=== PATIENT | female | born 1935 | race Caucasian/White ===

== ENCOUNTER → 2017-03-28 | Outpatient (CLI) | payer MEDICARE ==
[2017-03-28 14:15] LABS: Basophils % (A) 1 %; CH 30.1; CHCM 32.7; Eosinophils # (A) 0.1 k/uL (0-0.7); Eosinophils % (A) 1 %; HCT 41.7 % (34.0-46.0); HDW 2.25; HGB 13.9 gm/dL (11.4-16.0); Luc # (Auto) 0.24; Luc % (Auto) 4; Lymphocytes % (A) 30 %; MCH 30.8 pg (25.0-35.0); MCHC 33.3 g/dL (31.0-37.0); MCV 92.6 fL (80.0-100.0); Mean Platelet Volume 7.3; Monocytes # (A) 0.5 k/uL (0-1.0); Monocytes % (A) 8 %; Neutrophils # (A) 3.8 k/uL (1.3-7.7); Neutrophils % (A) 57 %; RDW 13.1 % (11.5-15.5); WBC 6.6 k/uL (3.8-10.6); WBC (Perox) 5.89
[2017-03-28 14:29] LABS: ALT 28 U/L (9-52); AST 27 U/L (14-36); Alkaline Phosphatase 80 U/L (38-126); Anion Gap 11 mmol/L; Blood Urea Nitrogen 24 mg/dL (7-17); Calcium 9.2 mg/dL (8.4-10.2); Carbon Dioxide 24 mmol/L (22-30); Chloride 109 mmol/L (98-107); Cholesterol 197 mg/dL (<200); Creatine Kinase 347 U/L (30-135); Glucose 96 mg/dL (74-99); HDL Cholesterol 61 mg/dL (40-60); Non-African American GFR(MDRD) >60 (>60 ml/min/1.73 sqM); Potassium 4.2 mmol/L (3.5-5.1); Sodium 144 mmol/L (137-145); Total Bilirubin 1.3 mg/dL (0.2-1.3); Total Protein 7.3 g/dL (6.3-8.2); Triglycerides 117 mg/dL (<150)
[2017-03-28 15:01] LABS: Erythrocyte Sedimentation Rate 8 mm/hr (0-20)
[2017-03-28 15:29] LABS: C Reactive Protein <5.0 mg/L (<10.0)
== END | disposition home or self-care (01) ==
LOC: LABWHC1 13:44
PROVIDERS: ATTEND Internal Medicine
DX: E78.5 Hyperlipidemia, unspecified (principal); F03.90 Unspecified dementia, unspecified severity, without behavioral disturbance, psychotic disturbance, mood disturbance, and anxiety
CPT/HCPCS: 36415; 80053; 80061; 82550; 84443; 85025; 85652; 86140

== ENCOUNTER 2018-01-06 19:01 | Emergency (ER) | payer OTHER, MEDICARE ==
[2018-01-06] MEDS ORDERED: SODIUM CHLORIDE 0.9% 1,000 ML IV STA (20:10)
[2018-01-06 20:39] LABS: HGB 13.2 gm/dL (11.4-16.0); MCH 29.8 pg (25.0-35.0); MCHC 32.1 g/dL (31.0-37.0); MCV 92.7 fL (80.0-100.0); Mean Platelet Volume 6.8; Platelet Count 243 k/uL (150-450); RBC 4.43 m/uL (3.80-5.40); RDW 12.9 % (11.5-15.5); WBC 6.4 k/uL (3.8-10.6)
[2018-01-06 20:40] LABS: INR 1.1 (<1.2); Prothrombin Time 10.6 sec (9.0-12.0)
[2018-01-06 20:55] LABS: Eosinophils # (M) 0.06 k/uL (0-0.7); Lymphocytes # (M) 2.43 k/uL (1.0-4.8); Monocytes # (M) 0.38 k/uL (0-1.0); Neutrophils # (M) 3.52 k/uL (1.3-7.7); Neutrophils % (M) 55 %; Nucleated Red Blood Cells 0 /100 WBC (0-0); Total Cells Counted 100
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
[2018-01-06 20:57] LABS: Anion Gap 10 mmol/L; Blood Urea Nitrogen 18 mg/dL (7-17); Carbon Dioxide 25 mmol/L (22-30); Chloride 108 mmol/L (98-107); Glucose 93 mg/dL (74-99); Potassium 4.2 mmol/L (3.5-5.1); Sodium 143 mmol/L (137-145)
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
[2018-01-06 20:58] LABS: ALT 23 U/L (9-52); AST 19 U/L (14-36); Albumin 3.8 g/dL (3.5-5.0); Alkaline Phosphatase 95 U/L (38-126); Calcium 9.4 mg/dL (8.4-10.2); Total Bilirubin 0.2 mg/dL (0.2-1.3); Total Protein 6.5 g/dL (6.3-8.2)
--- NOTE | 2018-01-06 20:59 | XR ---
EXAMINATION TYPE: XR chest 2V DATE OF EXAM: 01/06/2018 COMPARISON: NONE HISTORY: Dizziness TECHNIQUE: Frontal and lateral views of the chest are obtained. FINDINGS: There is some linear density at the left lung base. There are calcified granulomata in the left lower lobe. Thoracic aorta is atheromatous. There is no heart failure. I see no definite pleura l effusion. IMPRESSION: Fibrotic changes and old granulomatous disease at the left lung base. Subsegmental atele ctasis may be present also. No heart failure.
[2018-01-06 21:52] LABS: Appearance,Urine Clear (Clear); Bilirubin,Urine Negative (Negative); Blood,Urine Negative (Negative); Color,Urine Yellow; Glucose,Urine (UA) Negative (Negative); Hyaline Casts,Urine 3 /lpf (0-2); Ketones,Urine Negative (Negative); Leukocyte Esterase,Urine Large (Negative); Mucus,Urine Moderate /hpf; Nitrite,Urine Negative (Negative); PH, Urine 5.5 (5.0-8.0); Protein,Urine Trace (Negative); RBC,Urine 4 /hpf (0-5); Specific Gravity,Urine 1.018 (1.001-1.035); Squamous Epithelial Cell,Urine 1 /hpf (0-4); Urobilinogen,Urine <2.0 mg/dL (<2.0); WBC,Urine 38 /hpf (0-5)
[2018-01-06 22:26] VITALS: BP 163/86; PULSE 76; RESP 16; TEMP 98
== END 2018-01-06 22:27 | disposition home or self-care (01) ==
LOC: EC 19:01
DX: R42 Dizziness and giddiness (principal); Z79.899 Other long term (current) drug therapy; Z87.891 Personal history of nicotine dependence; V49.50XA Passenger injured in collision with unspecified motor vehicles in traffic accident, initial encounter; W22.12XA Striking against or struck by front passenger side automobile airbag, initial encounter; Y92.410 Unspecified street and highway as the place of occurrence of the external cause
CPT/HCPCS: 36415; 70450; 71046; 72125; 80053; 81001; 84484; 85025; 85610; 93005; 96360; 96361; 99285

== ENCOUNTER → 2019-03-11 | Outpatient (CLI) | payer MEDICARE ==
[2019-03-11 11:06] LABS: Basophils % (A) 1 %; Eosinophils # (A) 0.1 k/uL (0-0.7); Eosinophils % (A) 1 %; HCT 42.7 % (34.0-46.0); HGB 13.8 gm/dL (11.4-16.0); Lymphocytes # (A) 1.9 k/uL (1.0-4.8); Lymphocytes % (A) 35 %; MCH 30.5 pg (25.0-35.0); MCHC 32.3 g/dL (31.0-37.0); MCV 94.5 fL (80.0-100.0); Mean Platelet Volume 7.4; Monocytes # (A) 0.3 k/uL (0-1.0); Monocytes % (A) 5 %; Neutrophils # (A) 3.1 k/uL (1.3-7.7); Neutrophils % (A) 55 %; Platelet Count 232 k/uL (150-450); RBC 4.52 m/uL (3.80-5.40); RDW 13.5 % (11.5-15.5); WBC 5.5 k/uL (3.8-10.6)
[2019-03-11 12:56] LABS: Erythrocyte Sedimentation Rate 13 mm/hr (0-20)
[2019-03-11 19:05] LABS: ALT 17 U/L (8-44); AST 23 U/L (13-35); Albumin/Globulin Ratio 2.05 (1.60-3.17); Alkaline Phosphatase 98 U/L (41-126); C Reactive Protein <0.4 mg/dL (0.0-0.8); Calcium 9.4 mg/dL (8.7-10.3); Carbon Dioxide 23.9 mmol/L (21.6-31.8); Chloride 108 mmol/L (96-109); Cholesterol 148 mg/dL (0-200); Globulin 2.1 g/dL (1.6-3.3); Glucose 108 mg/dL (70-110); LDL Cholesterol,Calculated 80.6 mg/dL (0.0-131.0); Magnesium 2.2 mg/dL (1.5-2.4); Phosphorus 3.5 mg/dL (2.4-5.1); Potassium 4.4 mmol/L (3.5-5.5); Sodium 142 mmol/L (135-145); Total Bilirubin 0.7 mg/dL (0.3-1.2); Total Protein 6.4 g/dL (6.2-8.2); Uric Acid 4.2 mg/dL (2.9-7.7)
== END | disposition home or self-care (01) ==
LOC: LABWHC1 09:48
PROVIDERS: ATTEND Internal Medicine
DX: E78.5 Hyperlipidemia, unspecified (principal); E03.9 Hypothyroidism, unspecified; E55.9 Vitamin D deficiency, unspecified
CPT/HCPCS: 36415; 80053; 80061; 82306; 83735; 84100; 84443; 84550; 85025; 85652; 86140

== ENCOUNTER → 2019-05-20 | Outpatient (CLI) | payer MEDICARE ==
--- NOTE | 2019-05-21 09:14 | MM ---
Reason for exam: screening (asymptomatic). Last mammogram was performed 4 years and 7 months ago. History: Patient is postmenopausal. Family history of breast cancer in maternal aunt. Benign excisional biopsy of the left breast. Physical Findings: A clinical breast exam by your physician is recommended on an annual basis and results should be correlated with mammographic findings. MG 3D Screening Mammo W/Cad Bilateral CC and MLO view(s) were taken. Prior study comparison: October 08, 2014, bilateral MG screening mammo w CAD. January 29, 2012, [facility] DIGITAL RIGHT MAMMOGRAM w/CAD. The breast tissue is heterogeneously dense. This may lower the sensitivity of mammography. No suspicious abnormality. No significant changes when compared with prior studies. ASSESSMENT: Negative, BI-RAD 1 RECOMMENDATION: Routine screening mammogram of both breasts in 1 year.
== END | disposition home or self-care (01) ==
LOC: RADMAMWWP 09:24
PROVIDERS: ATTEND Internal Medicine
DX: Z12.31 Encounter for screening mammogram for malignant neoplasm of breast (principal)
CPT/HCPCS: 77063; 77067

== ENCOUNTER → 2019-07-31 | Outpatient (CLI) | payer MEDICARE ==
[2019-07-31 18:44] LABS: African American GFR (CKD) 77.9 (60.0-200.0)
[2019-07-31 18:52] LABS: T4, Free (Free Thyroxine) 1.2 ng/dL (0.80-1.80)
[2019-07-31 19:26] LABS: Folate, Serum >24.0 ng/mL; Rheumatoid Factor <4 IU/mL (0-13)
[2019-07-31 19:30] LABS: Anti-DNA, DS unit <1.0 IU/mL; DNA Double-Stranded NEGATIVE (NEGATIVE)
[2019-08-03 12:33] LABS: ANA Pattern See Footnote
[2019-08-04 09:17] LABS: Lyme IgG/IgM 0.06 Index
== END | disposition home or self-care (01) ==
LOC: LABWHC1 11:19
PROVIDERS: ATTEND Psychiatry & Neurology Neurology
DX: R41.3 Other amnesia (principal)
CPT/HCPCS: 36415; 82565; 82607; 82746; 84439; 84443; 84481; 84520; 86038; 86039; 86225; 86431; 86618

== ENCOUNTER → 2019-09-19 | Outpatient (CLI) | payer MEDICARE ==
--- NOTE | 2019-09-19 17:21 | MR ---
EXAMINATION TYPE: MR brain wo/w con DATE OF EXAM: 09/19/2019 COMPARISON: 03/30/2014 HISTORY: Memory loss, dementia, MS TECHNIQUE: Multiplanar, multisequence images of the brain and brainstem is performed without and with IV contras t, utilizing 7 mL intravenous Gadavist . FINDINGS: There is some cerebral cortical atrophy. There is no mass effect nor midline shift. There i s no sign of intracranial hemorrhage. Diffusion images show no evidence of a cortical infarct. There is patchy coalescent increased signal in the periventricular white matter on the T2 and FLAIR images. These areas measure up to 1 cm. There is also increased signal in the anterior left thalamus measuri ng 8 mm. There is bilateral insula white matter increased signal. The brainstem is intact. There is v mishel minimal thinning of the corpus callosum. Sella turcica appears normal. There is no evidence of a posterior fossa mass. IMPRESSION: Diffuse white matter changes consistent with chronic small vessel ischemia or demyelinating disease. Mild cerebral atrophy. No evidence of cortical infarct. White matter disease shows minimal progressio n compared to old exam.
== END | disposition home or self-care (01) ==
LOC: RADMRIMAIN 14:31
PROVIDERS: ATTEND Psychiatry & Neurology Neurology
DX: C71.9 Malignant neoplasm of brain, unspecified (principal); G35 Multiple sclerosis
CPT/HCPCS: 70553; A9585

== ENCOUNTER → 2020-11-23 | Outpatient (CLI) | payer MEDICARE ==
[2020-11-23 14:15] LABS: Basophils # (A) 0.1 k/uL (0-0.2); Basophils % (A) 1 %; Eosinophils # (A) 0.1 k/uL (0-0.7); Eosinophils % (A) 1 %; HCT 44.6 % (34.0-46.0); HGB 14.5 gm/dL (11.4-16.0); Lymphocytes # (A) 1.7 k/uL (1.0-4.8); Lymphocytes % (A) 28 %; MCH 30.9 pg (25.0-35.0); MCHC 32.4 g/dL (31.0-37.0); MCV 95.3 fL (80.0-100.0); Mean Platelet Volume 7.7; Monocytes # (A) 0.5 k/uL (0-1.0); Monocytes % (A) 7 %; Neutrophils # (A) 3.7 k/uL (1.3-7.7); Neutrophils % (A) 60 %; Platelet Count 215 k/uL (150-450); RBC 4.69 m/uL (3.80-5.40); RDW 12.8 % (11.5-15.5); WBC 6.2 k/uL (3.8-10.6)
[2020-11-23 15:02] LABS: Erythrocyte Sedimentation Rate 10 mm/hr (0-20)
[2020-11-23 21:14] LABS: ALT 21 U/L (8-44); AST 25 U/L (13-35); African American GFR (CKD) 58.7 (60.0-200.0); Albumin/Globulin Ratio 2.09 (1.60-3.17); Alkaline Phosphatase 83 U/L (41-126); C Reactive Protein <0.4 mg/dL (0.0-0.8); Calcium 9.5 mg/dL (8.7-10.3); Carbon Dioxide 25.7 mmol/L (21.6-31.8); Chloride 104 mmol/L (96-109); Chol/HDL Ratio 2.62; Cholesterol 170 mg/dL (0-200); Creatine Kinase 68 U/L (26-186); Globulin 2.2 g/dL (1.6-3.3); Glucose 106 mg/dL (70-110); LDL Cholesterol,Calculated 87.6 mg/dL (0.0-131.0); Magnesium 2.2 mg/dL (1.5-2.4); Non-African American GFR(CKD) 50.6 (60.0-200.0); Potassium 4.4 mmol/L (3.5-5.5); Sodium 142 mmol/L (135-145); Total Bilirubin 0.6 mg/dL (0.3-1.2); Total Protein 6.8 g/dL (6.2-8.2)
== END | disposition home or self-care (01) ==
LOC: LABWHC1 13:35
PROVIDERS: ATTEND Internal Medicine
DX: Z00.00 Encounter for general adult medical examination without abnormal findings (principal); D64.9 Anemia, unspecified; I10 Essential (primary) hypertension; E87.8 Other disorders of electrolyte and fluid balance, not elsewhere classified; E78.5 Hyperlipidemia, unspecified; E03.9 Hypothyroidism, unspecified; E55.9 Vitamin D deficiency, unspecified; G30.9 Alzheimer's disease, unspecified; F02.80 Dementia in other diseases classified elsewhere, unspecified severity, without behavioral disturbance, psychotic disturbance, mood disturbance, and anxiety
CPT/HCPCS: 36415; 80053; 80061; 82306; 82550; 83735; 84443; 85025; 85652; 86140

== ENCOUNTER → 2022-04-28 | Outpatient (CLI) | payer MEDICARE ==
[2022-04-28 17:29] LABS: Basophils # (A) 0.04 X 10*3/uL (0.00-0.10); Basophils % (A) 0.7 %; Eosinophils # (A) 0.05 X 10*3/uL (0.04-0.35); Eosinophils % (A) 0.9 %; HCT 47.5 % (37.2-46.3); HGB 14.6 g/dL (12.0-15.0); Immature Grans, Automated 0.3 %; Lymphocytes # (A) 2.03 X 10*3/uL (0.90-5.00); Lymphocytes % (A) 34.5 %; MCH 29.6 pg (27.0-32.0); MCHC 30.7 g/dL (32.0-37.0); MCV 96.2 fL (80.0-97.0); Mean Platelet Volume 10.5 fL (9.5-12.2); Monocytes # (A) 0.43 X 10*3/uL (0.20-1.00); Monocytes % (A) 7.3 %; NRBC Per 100 WBC 0 /100 WBCS (0.0-0.0); Neutrophils # (A) 3.31 X 10*3/uL (1.80-7.70); Neutrophils % (A) 56.3 %; Platelet Count 247 X 10*3/uL (140-440); RBC 4.94 X 10*6/uL (4.10-5.20); RDW 13.7 % (11.5-14.5); WBC 5.88 X 10*3/uL (4.50-10.00)
[2022-04-28 17:31] LABS: Erythrocyte Sedimentation Rate 5 mm/Hr (0-30)
[2022-04-28 18:23] LABS: C Reactive Protein <0.30 mg/dL (0.00-0.80); Chol/HDL Ratio 3.02 Ratio
[2022-04-28 18:27] LABS: ALT 15 U/L (8-44); AST 20 U/L (13-35); African American GFR (CKD) 66.8 (60.0-200.0); Albumin 4.6 g/dL (3.8-4.9); Albumin/Globulin Ratio 1.84 (1.60-3.17); Alkaline Phosphatase 85 U/L (41-126); BUN/Creat Ratio 23.96 Ratio (12.00-20.00); Blood Urea Nitrogen 21.4 mg/dL (9.0-27.0); Calcium 9.7 mg/dL (8.7-10.3); Chloride 102 mmol/L (96-109); Creatine Kinase 74 U/L (26-186); Globulin 2.5 g/dL (1.6-3.3); Glucose 109 mg/dL (70-110); Magnesium 2.4 mg/dL (1.5-2.4); Non-African American GFR(CKD) 57.6 (60.0-200.0); Potassium 4.5 mmol/L (3.5-5.5); Sodium 139 mmol/L (135-145); Total Protein 7.2 g/dL (6.2-8.2); Uric Acid 4.6 mg/dL (2.9-7.7)
== END | disposition home or self-care (01) ==
LOC: LABWHC1 10:51
PROVIDERS: ATTEND Internal Medicine
DX: Z00.00 Encounter for general adult medical examination without abnormal findings (principal); E78.5 Hyperlipidemia, unspecified; E03.9 Hypothyroidism, unspecified; E55.9 Vitamin D deficiency, unspecified; D64.9 Anemia, unspecified; I10 Essential (primary) hypertension; G30.9 Alzheimer's disease, unspecified; F02.80 Dementia in other diseases classified elsewhere, unspecified severity, without behavioral disturbance, psychotic disturbance, mood disturbance, and anxiety
CPT/HCPCS: 36415; 80053; 80061; 82306; 82550; 83735; 84100; 84443; 84550; 85025; 85652; 86140

== ENCOUNTER 2022-07-12 17:05 | Inpatient (IN) | payer MEDICARE ==
--- NOTE | 2022-07-12 18:32 | XR ---
EXAMINATION TYPE: XR chest 2V DATE OF EXAM: 07/12/2022 COMPARISON: 01/06/2018. HISTORY: Pain status post fall. TECHNIQUE: Frontal and lateral views of the chest are obtained. FINDINGS: There is no acute air space opacity, pleural effusion, or pneumothorax seen. Stable scatte red multiple left greater than right subcentimeter calcified granulomas. The cardiac silhouette size is within normal limits. The osseous structures are intact. IMPRESSION: No acute cardiopulmonary process. Calcified granulomas.
--- NOTE | 2022-07-12 18:34 | XR ---
EXAMINATION TYPE: XR Hip LT and AP Pelvis DATE OF EXAM: 07/12/2022 COMPARISON: NONE HISTORY: Pain status post fall. TECHNIQUE: A single AP view of the pelvis is obtained. Two views of the left hip are obtained. FINDINGS: There is suspicious fractures of the left superior and inferior pubic rami. There is also s uspicious fracture of the left iliac bone. No evidence of dislocation. The hip joint spaces are gross ly preserved. IMPRESSION: Suspicious left pubic rami and iliac bone fractures.
--- NOTE | 2022-07-12 21:24 | ED ---
Fall HPI - General Chief Complaint: Fall Stated Complaint: poss left hip fracture, fall Time Seen by Provider: 07/12/22 21:05 Source: patient, family, RN notes reviewed Mode of arrival: wheelchair - History of Present Illness Initial Comments: This is an 86-year-old female who presents to the emergency department for a fall. She does have dementia, which has been making it difficult to obtain a complete history from her. Believes that she was chasing her dog, when she fell down 2 or 3 steps. She hit her head and landed on the left side. Currently has pain to the left side of her chest in the rib area as well as in the left hip. States that she has been unable to stand due to the pain. She is normally very independent and lives alone. She is not taking any blood thinners. The family does not believe a computed tomography scan of the brain is necessary at this time, as they were on a [address] back from [facility] and she has been acting just like her normal self. Denies any loss of consciousness. Denies any fevers, chills, sore throat, cough, dyspnea, chest pain, palpitations, abdominal pain, nausea, vomiting, diarrhea, back pain, or headaches. MD Complaint: fall Fall From: standing Fall Witnessed: no Place Fall Occurred: home Loss of Consciousness: none Symptoms Prior to Fall: none Location: head - Related Data Previous Rx's Medication Instructions Recorded Meclizine [Antivert] 12.5 mg PO Q8HR #12 tablet 01/06/18 Allergies Allergy/AdvReac Type Severity Reaction Status Date / Time No Known Allergies Allergy Verified 07/12/22 17:43 Review of Systems ROS Statement: Those systems with pertinent positive or pertinent negative responses have been documented in the HPI. ROS Other: All systems not noted in ROS Statement are negative. Past Medical History Past Medical History: No Reported History, Dementia History of Any Multi-Drug Resistant Organisms: None Reported Past Surgical History: Adenoidectomy, Tonsillectomy Past Psychological History: No Psychological Hx Reported Past Alcohol Use History: Occasional Past Drug Use History: None Reported General Exam General appearance: alert, in no apparent distress Head exam: Present: atraumatic, normocephalic, normal inspection Respiratory exam: Present: normal lung sounds bilaterally. Absent: respiratory distress, wheezes, rales, rhonchi, stridor Cardiovascular Exam: Present: regular rate, normal rhythm, normal heart sounds. Absent: systolic murmur, diastolic murmur, rubs, gallop, clicks Neurological exam: Present: alert, oriented X3, CN II-XII intact Psychiatric exam: Present: normal affect, normal mood Skin exam: Present: warm, dry, intact, normal color. Absent: rash Course Vital Signs 07/12/22 07/12/22 17:38 23:56 Temperature 97.7 F Pulse Rate 56 L 65 Respiratory 18 16 Rate Blood Pressure 149/86 117/62 O2 Sat by Pulse 99 95 Oximetry Medical Decision Making - Medical Decision Making This is an 86-year-old female who presents to the emergency department for a fall. The patient and family are declining a computed tomography scan of the brain, as she has had a normal mental status. I am agreeable to this for the meantime, with the plan to obtain a CT if she does exhibit any changes in mentation. X-rays of the left hip and chest were obtained. Chest x-ray revealed no acute cardiopulmonary process. X-ray of the left hip revealed a questionable left pubic rami and iliac bone fracture. CT of the pelvis was then obtained for further evaluation. This confirmed the left pubic rami and iliac bone fractures. Dr. Sandhu, orthopedics, was consulted. She advised that this is not surgical, however due to the pain and impact on mobility, the patient may benefit from short-term rehabilitation placement. Patient admitted for evaluation by physical therapy and possible rehab placement. Social work consult placed regarding the rehab placement options. Return precautions reviewed in depth, the patient is instructed to return to the emergency department with any new, worsening, or concerning symptoms. Patient verbalized understanding. This case was discussed in detail with the attending ED physician. Presentation, findings, and treatment plan discussed in detail as well. - Radiology Data Radiology results: report reviewed, image reviewed Disposition Clinical Impression: Fracture of left inferior pubic ramus, Fracture of left iliac crest Disposition: ADMITTED IP TO THIS HOSP
--- NOTE | 2022-07-12 22:06 | CT ---
Result: History: Follow-up pain status post fall. Comparison: Same-day radiographs Technique: Noncontrast axial CT images of the pelvis were obtained with images provided in bone and s oft tissue algorithm. Coronal and sagittal reformats were provided and reviewed. Automated dose con trol was used for this exam. Findings: The bone mineralization is age-appropriate. There are nondisplaced fractures of the left superior pubic ramus root and inferior pubic ramus. Ther e is also mildly comminuted fracture of the left iliac bone articular surface extending into the sacr oiliac joint. No evidence of dislocation. There is soft tissue edema about the fracture sites. Impression: Left pubic rami and left iliac bone fractures.
[2022-07-12] MEDS ORDERED: HYDROcodone/APAP 5-325MG 1 EACH TAB PO STA (23:18)
[2022-07-12] MEDS ORDERED: IBUPROFEN 400 MG TAB PO PRN (23:58)
[2022-07-12] MEDS ORDERED: NALOXONE 0.4 MG/ML 1 ML VIAL IV PRN (23:58)
[2022-07-12] MEDS ORDERED: ONDANSETRON 4 MG/2 ML VIAL IVP PRN (23:58)
[2022-07-12] MEDS ORDERED: ACETAMINOPHEN TAB 325 MG TAB PO PRN (23:58)
[2022-07-13] MEDS: HYDROcodone/APAP 5-325MG 1 EACH TAB PO PRN (06:33)
[2022-07-13] MEDS: MULTIVITAMINS, THERA 1 EACH TAB PO SCH (10:11)
[2022-07-13] MEDS: DONEPEZIL 10 MG TAB PO SCH (10:11)
[2022-07-13] MEDS: CHOLECALCIFEROL 25 MCG (1000 IU) TABLET PO SCH (10:11)
[2022-07-13] MEDS: MEMANTINE 10 MG TAB PO SCH (10:11)
--- NOTE | 2022-07-13 10:23 | XR ---
EXAMINATION TYPE: XR ribs LT DATE OF EXAM: 07/13/2022 COMPARISON: NONE HISTORY: Pain TECHNIQUE: 4 views of the left ribs are submitted. FINDINGS: Bilateral calcifications are noted and there is pleural thickening greater on the right. Novak bsegmental changes at both lung bases. Degenerative changes spine with atherosclerotic change of aort a. Age-indeterminate compression deformity approximately at level L1. There are displaced fractures i nvolving the left sixth through eighth ribs. Calcifications in the upper abdomen could be vascular. H eart is enlarged IMPRESSION: 1. Displaced fractures involving the left sixth through eighth ribs laterally. 2. Bilateral infiltrates with right-sided asymmetric pleural thickening. Correlate for pleural plaque or calcified granuloma. Short-term follow-up CT of the chest recommended. 3. No pneumothorax. 4. Age-indeterminate compression deformity L1.
--- NOTE | 2022-07-13 10:59 | P.CNOR ---
History of Present Illness - [facility] Consult date: 07/13/22 Consult reason: fracture (Left pubic rami and iliac fractures) History of present illness: The patient is a 86 y/o female with a history of dementia who presented to the emergency department last night after sustaining a fall in her assisted living apartment. The patient's son was present in the room this morning and provided her history. X-rays were taken in the ER and revealed a pubic rami fracture. A pelvis CT was performed and revealed a iliac fracture as well. She did hit her head but the patient's family declined a head CT upon arrival to the ER. This morning, the patient is resting well in the ER. She is awaiting admission for skilled rehab placement. Orthopedics was consulted for further evaluation and care of the pubic rami and iliac fractures. She is having pain on the left side as expected. The patient was also found to have rib fractures and possibly an old L1 compression fracture as well. Review of Systems ROS unobtainable: due to mental status Past Medical History Past Medical History: No Reported History, Dementia History of Any Multi-Drug Resistant Organisms: None Reported Past Surgical History: Adenoidectomy, Tonsillectomy Past Psychological History: No Psychological Hx Reported Past Alcohol Use History: Occasional Past Drug Use History: None Reported Medications and Allergies Home Medications Medication Instructions Recorded Confirmed Type Atorvastatin [Lipitor] 10 mg PO HS 07/13/22 07/13/22 History Cholecalciferol [Vitamin D3 (25 25 mcg PO DAILY 07/13/22 07/13/22 History Mcg = 1000 Iu)] Donepezil HCl [Aricept] 10 mg PO DAILY 07/13/22 07/13/22 History Melatonin [Melatonin ER] 10 mg PO HS 07/13/22 07/13/22 History Memantine [Namenda] 10 mg PO BID 07/13/22 07/13/22 History Multivitamins, Thera [Multivitamin 1 tab PO DAILY 07/13/22 07/13/22 History (formulary)] Allergies Allergy/AdvReac Type Severity Reaction Status Date / Time No Known Allergies Allergy Verified 07/13/22 08:14 Physical Examination The patient is a 86 y/o female in no acute distress. She is alert and oriented x2. Exam of the cervical spine reveals no step-offs or pain on palpation. Exam of the bilateral upper extremities reveal no obvious deformity or wounds. Exam of the right lower extremity reveals no deformity or open wounds. Exam of the left lower extremity reveal pain on any range of motion of the leg. No pain to the lateral hip. No deformity to the leg. There is pain on lateral compression of the pelvis. Calves are soft and nontender. Good foot and ankle motion. Neurological and circulatory status is intact. Results The CT pelvis and x-rays reveal superior and inferior pubic rami fractures on the left and iliac fracture on the left. Assessment and Plan (1) Fracture of left superior pubic ramus Current Visit: Yes Status: Acute Code(s): S32.512A - FRACTURE OF SUPERIOR RIM OF LEFT PUBIS, INIT FOR CLOS FX SNOMED Code(s): 720491032 (2) Fall Current Visit: Yes Status: Acute Code(s): W19.XXXA - UNSPECIFIED FALL, INITIAL ENCOUNTER SNOMED Code(s): 5795269 (3) Dementia Current Visit: Yes Status: Acute Code(s): F03.90 - UNSPECIFIED DEMENTIA WITHOUT BEHAVIORAL DISTURBANCE SNOMED Code(s): 39523055 (4) Fracture of left iliac crest Current Visit: Yes Status: Acute Code(s): S32.302A - UNSP FRACTURE OF LEFT ILIUM, INIT ENCNTR FOR CLOSED FRACTURE SNOMED Code(s): 229368310 (5) Fracture of left inferior pubic ramus Current Visit: Yes Status: Acute Code(s): S32.592A - OTH FRACTURE OF LEFT PU BIS, INIT ENCNTR FOR CLOSED FRACTURE SNOMED Code(s): 401756595 Plan: The clinical and diagnostic findings were discussed with the patient and her son. No surgical intervention is planned. The patient will need skilled rehab placement. PT and OT evaluations have been ordered. Social work is consulted. She will be nonweightbearing on the left leg with a walker for transfers to a chair. Continue pain control. We will continue to monitor.
[2022-07-13] MEDS: oxyCODONE-APAP 5-325MG 1 EACH TAB PO PRN ×2 (11:34→17:01)
--- NOTE | 2022-07-13 17:48 | P.PN ---
Subjective Progress Note Date: 07/13/22 Progress note date of service 07/13/[address] Abril Martin [facility]. Patient seen [id number] today and room exam 24 and they are was delayed for the admission to the floor and she will be going to fourth floor surgical souse power. Her daughter in the same room with a watching in the ER exam room Patient with a history of dementia has been stable until recently when she fell down on the role of the dog at the [facility] and landed on her left side Patient seen in the ER and orthopedic consultation was done and they decided no added treatment except pain control and shelter for continuing rehab Patient seen by the PA/malcolm supplantation Jerilyn Bethea who is working with Dr. Madelyn Sandhu Orthopedic associate who stated and her note that she had the fell down and she had pubic rami and iliac fracture of the left hip as well as she had L1 compression fracture which apparently old as well as the rib fractures and the rib fractures from 65 and 8 with severe pain and the x-ray report of the ribs the x-ray indicating that displaced fracture involving the left 6 through the eighth ribs laterally Bilateral infiltrate with a right sided symmetrical rebecca thickening correlate with the rebecca plaque or calcified granuloma. They recommended short-term follow-up computed tomography scan of the chest is recommended also the indicated no pneumothorax and intermediate compression deformity of L1. The orthopedic is aware of diet. Zzqk-cq-soai exam as well as evaluation of the vital sign Temperature 98.1 F oral heart rate 69, respiratory rate 18 nonlabored, blood pressure 131/70 with a mean blood pressure 90 her oxygen saturation 93% on room air. On the physical examination patient is conscious alert oriented she has no respiratory distress but she had splinting pain on the left side of the ribs Head was normocephalic and atraumatic pupil was equal reactive conjunctiva was pink sclera is nonicteric She has normal oropharynx with natural teeth Neck was supple no JVD no thyromegaly no lymphadenopathy trachea midline. Her chest is tender on palpation on the left side of the ribs with the presence of fracture 6 to 8 cramps She did not have no pleurisy and able to Blease normally on the auscultation no rhonchi or rales Heart was regular sinus rhythm Abdomen was soft positive bowel sounds and mildly distended Extremities no edema and she had a fracture of the left pelvis of the the rami as well as the. Neurologically she is stable and she was able to walk before Psychiatry she has underlying dementia. Assessment #1 she had left hip fracture of the pubic rami on the left side as well as the iliac #2 fracture of the ribs on the left side some displacement #6, 7, 8, with tenderness on palpation # #3 dementia stable at this time Recommendation physical therapy [facility] worker long term placement for rehabilitation with the above fractures. Objective - Vital Signs Vital signs: Vital Signs Temp 98.1 F 07/13/22 13:12 Pulse 69 07/13/22 13:12 Resp 18 07/13/22 13:12 BP 131/70 07/13/22 13:12 Pulse Ox 93 L 07/13/22 13:12 FiO2 Intake & Output 07/12/22 07/13/22 07/13/22 18:59 06:59 18:59 Weight 56.699 kg
[2022-07-13] MEDS: DOCUSATE 100 MG CAP PO SCH (18:47)
[2022-07-14] MEDS: MEMANTINE 10 MG TAB PO SCH ×3 (00:15→20:33)
[2022-07-14] MEDS: ATORVASTATIN 10 MG TAB PO SCH ×2 (00:15→20:33)
[2022-07-14] MEDS: MELATONIN 5 MG TABLET PO SCH ×2 (00:15→20:33)
[2022-07-14] MEDS: HYDROcodone/APAP 5-325MG 1 EACH TAB PO PRN ×2 (06:29→20:33)
[2022-07-14] MEDS: DOCUSATE 100 MG CAP PO SCH (08:08)
[2022-07-14] MEDS: MULTIVITAMINS, THERA 1 EACH TAB PO SCH (08:08)
[2022-07-14] MEDS: DONEPEZIL 10 MG TAB PO SCH (08:08)
[2022-07-14] MEDS: CHOLECALCIFEROL 25 MCG (1000 IU) TABLET PO SCH (08:08)
--- NOTE | 2022-07-14 10:43 | P.PN ---
Subjective Progress Note Date: 07/14/22 The patient is a 86 y/o female with a history of dementia who presented to the emergency department last night after sustaining a fall in her assisted living apartment. The patient's son was present in the room this morning and provided her history. X-rays were taken in the ER and revealed a pubic rami fracture. A pelvis CT was performed and revealed a iliac fracture as well. She did hit her head but the patient's family declined a head CT upon arrival to the ER. This morning, the patient is resting well in the ER. She is awaiting admission for skilled rehab placement. Orthopedics was consulted for further evaluation and care of the pubic rami and iliac fractures. She is having pain on the left side as expected. The patient was also found to have rib fractures and possibly an old L1 compression fracture as well. 07/14/22: Patient is examined bedside this morning. Family member bedside. She states her pain is well-controlled at this time. Her family members states she was up in the night with a walker to the bedside commode. She is remaining nonweightbearing on the left lower extremity. There are no new complaints this morning. Vital signs stable. Objective - Vital Signs Vital signs: Vital Signs Temp 98.5 F 07/14/22 08:00 Pulse 71 07/14/22 08:00 Resp 16 07/14/22 02:22 BP 127/79 07/14/22 08:00 Pulse Ox 94 L 07/14/22 08:00 FiO2 Intake & Output 07/13/22 07/14/22 07/14/22 18:59 06:59 18:59 Weight 56.699 kg Other: Voiding Method Bedside Commode Bedpan # Voids 1 1 - Exam On examination, patient is sitting up in bed in no apparent distress. She is alert and answers questions appropriately. There is pain with palpation of the lateral pelvis. No pain with palpation of the lateral hip, thigh, knee, ankle. Range of motion of the left lower extremity not attempt at this time. Patient has good strength and [id number] of the left ankle and toes. Motor and sensory function is intact of the left lower extremity. Dorsalis pedis pulse easily palpable, left lower extremity warm and well-perfused. Calf is nontender. Assessment and Plan (1) Dementia Current Visit: Yes Status: Acute Code(s): F03.90 - UNSPECIFIED DEMENTIA WITHOUT BEHAVIORAL DISTURBANCE SNOMED Code(s): 15156645 (2) Fall Current Visit: Yes Status: Acute Code(s): W19.XXXA - UNSPECIFIED FALL, INITIAL ENCOUNTER SNOMED Code(s): 5004250 (3) Fracture of left iliac crest Current Visit: Yes Status: Acute Code(s): S32.302A - UNSP FRACTURE OF LEFT ILIUM, INIT ENCNTR FOR CLOSED FRACTURE SNOMED Code(s): 092430987 (4) Fracture of left inferior pubic ramus Current Visit: Yes Status: Acute Code(s): S32.592A - OTH FRACTURE OF LEFT PUBIS, INIT ENCNTR FOR CLOSED FRACTURE SNOMED Code(s): 073466473 (5) Fracture of left superior pubic ramus Current Visit: Yes Status: Acute Code(s): S32.512A - FRACTURE OF SUPERIOR RIM OF LEFT PUBIS, INIT FOR CLOS FX SNOMED Code(s): 857519848 Plan: - Patient was discussed with Dr. Sandhu. No surgical intervention is recommended at this time. Patient to remain strictly nonweightbearing on the left lower extremity with a walker. Up with assistance. Fall precautions. - Physical therapy for mobilization. - Pain management as needed. - Patient will most likely need rehab placement at discharge. We will follow the patient peripherally as she remains inpatient.
--- NOTE | 2022-07-14 12:34 | P.PN ---
Subjective Progress Note Date: 07/14/22 Progress note Date of service 07/14/[address] janet Martin [facility] Patient seen today [id number] discussed with her daughter at bedside. Patient is conscious alert oriented however she has progressive dementia and she understand that she fractured her pelvis and ribs on the left side Her pain level is tolerated well with the current treatment. Vital sign her stable stable and no complaint of chest pain or shortness of breath. On exam: Head was normocephalic and atraumatic, pupils equal reactive, has natural teeth able to communicate freely. Neck was supple no JVD no thyromegaly no lymphadenopathy trachea midline. Chest is clear no wheezes no rhonchi's and she has and symmetrical with the kyphoscoliosis Heart was regular sinus rhythm no dysrhythmia. Abdomen soft nontender positive bowel sounds with the mild abdominal distention questionable stool retention Extremities no edema and positive pulses she in Namrata chair comfortable Assessment: #1 status post fall at the [facility] with the correct on the leash of the dog #2 fall on her left side resulted in rib fracture #6, 7 and 8 on the left side #3 fracture of left pelvis left pubic rami and iliac:. #4 dementia. Plan continue the current treatment Waiting for placement at [facility]. 4 prolongated rehabilitation. Discussed with the daughter in detail. Objective - Vital Signs Vital signs: Vital Signs Temp 98.5 F 07/14/22 08:00 Pulse 71 07/14/22 08:00 Resp 16 07/14/22 02:22 BP 127/79 07/14/22 08:00 Pulse Ox 94 L 07/14/22 08:00 FiO2 Intake & Output 07/13/22 07/14/22 07/14/22 18:59 06:59 18:59 Weight 56.699 kg Other: Voiding Method Bedside Commode Bedpan # Voids 1 1
[2022-07-14] MEDS: SENNOSIDES-DOCUSATE SODIUM 1 EACH TAB PO SCH ×2 (12:39→20:33)
[2022-07-14] MEDS: oxyCODONE-APAP 5-325MG 1 EACH TAB PO PRN (12:40)
[2022-07-15] MEDS: oxyCODONE-APAP 5-325MG 1 EACH TAB PO PRN ×2 (03:28→13:32)
[2022-07-15] MEDS: DONEPEZIL 10 MG TAB PO SCH (08:07)
[2022-07-15] MEDS: CHOLECALCIFEROL 25 MCG (1000 IU) TABLET PO SCH (08:07)
[2022-07-15] MEDS: MULTIVITAMINS, THERA 1 EACH TAB PO SCH (08:07)
[2022-07-15] MEDS: MEMANTINE 10 MG TAB PO SCH ×2 (08:07→22:07)
[2022-07-15] MEDS: DOCUSATE 100 MG CAP PO SCH (08:08)
[2022-07-15] MEDS: SENNOSIDES-DOCUSATE SODIUM 1 EACH TAB PO SCH ×2 (08:08→22:07)
[2022-07-15] MEDS ORDERED: MAGNESIUM HYDROXIDE 2,400 MG/10 ML CUP PO PRN (13:12)
[2022-07-15] MEDS ORDERED: ENALAPRILAT 1.25 MG/ML 1 ML VIAL IVP PRN (13:23)
[2022-07-15] MEDS: amLODIPine 5 MG TAB PO SCH (13:32)
--- NOTE | 2022-07-15 13:36 | P.PN ---
Subjective Progress Note Date: 07/15/22 (Hypertension uncontrolled) Progress note Date of service 07/15/[address] Abril Martin [facility] Patient seen today [id number] and discussed with her son and caregiver. Patient sitting in the chair with no specific complaint except to the pain from her rib fracture on the left lower ribs 6, 7, 8 and she breathing normally and no evidence of pleurisy comfortable Vital sign indicating temperature 98.0 F oral heart rate 66 bpm regular sinus, blood pressure 164/91 with the mean blood pressure 115 air, oxygen saturation 100%. Patient conscious alert oriented able to converse and answer some questions with the underlying dementia Her head was normocephalic and atraumatic pupil was equal reactive conjunctiva was pink sclera was nonicteric Neck was supple no JVD no thyromegaly no lymphadenopathy Chest is clear to auscultation and percussion Heart was regular sinus rhythm with the underlying hypertension presents. Abdomen soft mildly distended with possibility of constipation able to urinate. Extremities no edema and positive pulses with good perfusion . Tenderness on the left lower ribs as well as on the left side of the hips with the fracture of the pubic ramus as well as iliac new Assessment #1 concern of constipation medication applied #2 hypertension and started on Vasotec IV 1.25 mg every 6 hours when necessary for blood pressure above 140 systolic #3 started on amlodipine 5 mg at at bedtime to be held if the blood pressure below 140 systolic. #4 waiting for continuing rehabilitation at [facility]. Plan: Discussed with her son and caregiver and plan for Saturday [facility] intermediate Start heparin subcu 5000 every 12 hours Physical therapy to continue. Follow-up with the orthopedic surgeon. Objective - Vital Signs Vital signs: Vital Signs Temp 98.0 F 07/15/22 08:00 Pulse 66 07/15/22 08:00 Resp 17 07/15/22 02:00 BP 164/91 07/15/22 08:00 Pulse Ox 100 07/15/22 08:00 FiO2 Intake & Output 07/14/22 07/15/22 07/15/22 18:59 06:59 18:59 Other: Voiding Method Bedside Commode Bedpan # Voids 1 1 1
[2022-07-15] MEDS: HYDROcodone/APAP 5-325MG 1 EACH TAB PO PRN (20:38)
[2022-07-15] MEDS ORDERED: HEPARIN SODIUM,PORCINE 5,000 UNIT/ML 1 ML VIAL SQ SCH (21:00)
[2022-07-15] MEDS: ATORVASTATIN 10 MG TAB PO SCH (22:07)
[2022-07-15] MEDS: MELATONIN 5 MG TABLET PO SCH (22:07)
[2022-07-15] MEDS: HEPARIN SODIUM,PORCINE/PF 5,000 UNIT/0.5 ML SYRINGE SQ SCH (22:07)
[2022-07-16 05:12] LABS: INR 0.9 (<1.2); Partial Thromboplastin Time 22.7 sec (22.0-30.0); Prothrombin Time 10.3 sec (9.0-12.0)
[2022-07-16] MEDS: HYDROcodone/APAP 5-325MG 1 EACH TAB PO PRN ×3 (08:28→21:45)
[2022-07-16] MEDS: MEMANTINE 10 MG TAB PO SCH ×2 (08:29→21:46)
[2022-07-16] MEDS: MULTIVITAMINS, THERA 1 EACH TAB PO SCH (08:29)
[2022-07-16] MEDS: DONEPEZIL 10 MG TAB PO SCH (08:29)
[2022-07-16] MEDS: HEPARIN SODIUM,PORCINE/PF 5,000 UNIT/0.5 ML SYRINGE SQ SCH ×2 (08:29→21:46)
[2022-07-16] MEDS: CHOLECALCIFEROL 25 MCG (1000 IU) TABLET PO SCH (08:29)
[2022-07-16] MEDS: SENNOSIDES-DOCUSATE SODIUM 1 EACH TAB PO SCH ×2 (08:29→21:46)
[2022-07-16 09:16] LABS: Basophils # (A) 0.02 X 10*3/uL (0.00-0.10); Basophils % (A) 0.2 %; Eosinophils # (A) 0.02 X 10*3/uL (0.04-0.35); Eosinophils % (A) 0.2 %; HCT 39.2 % (37.2-46.3); HGB 12.7 g/dL (12.0-15.0); Immature Grans, Automated 0.5 %; Lymphocytes # (A) 1.23 X 10*3/uL (0.90-5.00); Lymphocytes % (A) 14.6 %; MCH 30.2 pg (27.0-32.0); MCHC 32.4 g/dL (32.0-37.0); MCV 93.1 fL (80.0-97.0); Monocytes % (A) 10.7 %; NRBC Per 100 WBC 0 /100 WBCS (0.0-0.0); Neutrophils # (A) 6.19 X 10*3/uL (1.80-7.70); Neutrophils % (A) 73.8 %; Platelet Count 171 X 10*3/uL (140-440); RBC 4.21 X 10*6/uL (4.10-5.20); RDW 14.3 % (11.5-14.5)
[2022-07-16 10:01] LABS: Albumin 3.7 g/dL (3.8-4.9); Albumin/Globulin Ratio 1.53 (1.60-3.17); Anion Gap 11.1 mmol/L (10.00-18.00); BUN/Creat Ratio 28.51 Ratio (12.00-20.00); Blood Urea Nitrogen 19.1 mg/dL (9.0-27.0); Calcium 8.7 mg/dL (8.7-10.3); Carbon Dioxide 24.1 mmol/L (20.0-27.5); Globulin 2.4 g/dL (1.6-3.3); Non-African American GFR(CKD) 78.5 (60.0-200.0); Total Bilirubin 0.7 mg/dL (0.30-1.20); Total Protein 6.1 g/dL (6.2-8.2)
[2022-07-16] MEDS: oxyCODONE-APAP 5-325MG 1 EACH TAB PO PRN (12:09)
--- NOTE | 2022-07-16 14:20 | P.PN ---
Subjective Progress Note Date: 07/16/22 The patient is a 86 y/o female with a history of dementia who presented to the emergency department last night after sustaining a fall in her assisted living apartment. The patient's son was present in the room this morning and provided her history. X-rays were taken in the ER and revealed a pubic rami fracture. A pelvis CT was performed and revealed a iliac fracture as well. She did hit her head but the patient's family declined a head CT upon arrival to the ER. This morning, the patient is resting well in the ER. She is awaiting admission for skilled rehab placement. Orthopedics was consulted for further evaluation and care of the pubic rami and iliac fractures. She is having pain on the left side as expected. The patient was also found to have rib fractures and possibly an old L1 compression fracture as well. 07/16/22: Patient is examined bedside this morning. Her daughters bedside. The patient states she is doing well and experiencing minimal pain today. She has been transferring with a walker to the bedside chair. She is doing well with no complaints. She is planning to discharge tomorrow tomorrow. Vital signs stable. Objective - Vital Signs Vital signs: Vital Signs Temp 97.6 F 07/16/22 07:13 Pulse 96 07/16/22 07:13 Resp 14 07/16/22 07:13 BP 117/80 07/16/22 07:13 Pulse Ox 91 L 07/16/22 07:13 FiO2 Intake & Output 07/15/22 07/16/22 07/16/22 18:59 06:59 18:59 Other: Voiding Method Bedside Commode Bedpan # Voids 1 1 - Exam On examination, patient is sitting up in the bedside chair in no apparent distress. She is alert and answers questions appropriately. There is mild pain with palpation of the lateral pelvis. No pain with palpation of the lateral hip, thigh, knee, ankle. Range of motion of the left lower extremity not attempt at this time. Patient has good strength and [id number]-[id number] of the left ankle and toes. Motor and sensory function is intact of the left lower extremity. Dorsalis pedis pulse easily palpable, left lower extremity warm and well- perfused. Calf is nontender. - Labs CBC & Chem 7: 07/16/22 04:15 07/16/22 04:15 Labs: Abnormal Lab Results - Last 24 Hours (Table) 07/16/22 07/16/22 Range/Units 04:15 04:15 Eosinophils # 0.02 L (0.04-0.35) X 10*3/uL BUN/Creatinine Ratio 28.51 H (12.00-20.00) Ratio Glucose 139 H (70-110) mg/dL AST 50 H (13-35) U/L ALT 55 H (8-44) U/L Total Protein 6.1 L (6.2-8.2) g/dL Albumin 3.7 L (3.8-4.9) g/dL Albumin/Globulin Ratio 1.53 L (1.60-3.17) g/dL Assessment and Plan (1) Dementia Current Visit: Yes Status: Acute Code(s): F03.90 - UNSPECIFIED DEMENTIA WITHOUT BEHAVIORAL DISTURBANCE SNOMED Code(s): 10890353 (2) Fall Current Visit: Yes Status: Acute Code(s): W19.XXXA - UNSPECIFIED FALL, INITIAL ENCOUNTER SNOMED Code(s): 9020596 (3) Fracture of left iliac crest Current Visit: Yes Status: Acute Code(s): S32.302A - UNSP FRACTURE OF LEFT ILIUM, INIT ENCNTR FOR CLOSED FRACTURE SNOMED Code(s): 800188643 (4) Fracture of left inferior pubic ramus Current Visit: Yes Status: Acute Code(s): S32.592A - OTH FRACTURE OF LEFT PUBIS, INIT ENCNTR FOR CLOSED FRACTURE SNOMED Code(s): 692495829 (5) Fracture of left superior pubic ramus Current Visit: Yes Status: Acute Code(s): S32.512A - FRACTURE OF SUPERIOR RIM OF LEFT PUBIS, INIT FOR CLOS FX SNOMED Code(s): 759581177 Plan: - Patient was discussed with Dr. Sandhu today. Patient may advance her weight bearing to 50% on the left lower extremity with a walker. Up with assistance. Fall precautions. - Physical therapy for mobilization. - Pain management as needed. - DVT prophylaxis per internal medicine . - Patient plans to discharge to [facility] tomorrow.
--- NOTE | 2022-07-16 15:07 | P.PN ---
Subjective Progress Note Date: 07/16/22 (Mild liver enzyme elevation.) Progress note Date of service 07/16/[address] Samuels. Patient seen today and discussed with the patient and her daughter at bedside. Temperature 97.6 F oral, heart rate 96 bpm, respiratory rate 17 - 14 nonlabored, blood pressure 117/80 oxygen saturation on room air 91 no shortness of breath. Laboratories: WBC 8.4, hemoglobin 12.7, hematocrit 39.2, platelet count 171, PT 10.3, INR 0.9, PTT 22.7, Sodium 140, potassium 4, chloride 105, carbon dioxide 24.1 BUN of 19.1, creatinine 0.7, EGFR for non- 78.5. Glucose random 139 calcium 8.7, AST 50 and a LT 55 with minimal elevation with normal alkaline phosphatase 81. Total protein 6.1, albumin 3.7, globulin 2.4. Patient seen by the orthopedic nurse practitioner today. Patient in the Namrata chair comfortable and pain is controlled. Patient suffered from left hip pubic fracture as well as rib fracture on the 6, 7 and 8 and pain is tolerable controlled very well Head was normocephalic and atraumatic oropharynx natural disease able to eat and swallow her daughter at bedside. The neck was supple no JVD no thyromegaly no lymphadenopathy trachea midline Chest was clear to auscultation and percussion was underlying kyphoscoliosis Heart was regular sinus rhythm compensated no evidence of dysrhythmia Abdomen is soft positive bowel sounds Extremities no edema and positive pulses. Assessment left rib fracture 6, 7 and 8 as well as left iliac as well as the pubic rami fracture Mild elevation of liver enzyme no need for treatment, we'll repeat again after 3-4 weeks. Dementia continued Plan: #1 waiting for the available alf for continuing rehabilitation. #2 continue rehab. Objective - Vital Signs Vital signs: Vital Signs Temp 97.9 F 07/16/22 14:00 Pulse 83 07/16/22 14:00 Resp 16 07/16/22 14:00 BP 111/71 07/16/22 14:00 Pulse Ox 93 L 07/16/22 14:00 FiO2 Intake & Output 07/15/22 07/16/22 07/16/22 18:59 06:59 18:59 Other: Voiding Method Bedside Commode Bedpan # Voids 1 1 - Labs CBC & Chem 7: 07/16/22 04:15 07/16/22 04:15 Labs: Abnormal Lab Results - Last 24 Hours (Table) 07/16/22 07/16/22 Range/Units 04:15 04:15 Eosinophils # 0.02 L (0.04-0.35) X 10*3/uL BUN/Creatinine Ratio 28.51 H (12.00-20.00) Ratio Glucose 139 H (70-110) mg/dL AST 50 H (13-35) U/L ALT 55 H (8-44) U/L Total Protein 6.1 L (6.2-8.2) g/dL Albumin 3.7 L (3.8-4.9) g/dL Albumin/Globulin Ratio 1.53 L (1.60-3.17) g/dL
[2022-07-16] MEDS: ATORVASTATIN 10 MG TAB PO SCH (21:46)
[2022-07-16] MEDS: amLODIPine 5 MG TAB PO SCH (21:46)
[2022-07-16] MEDS: MELATONIN 5 MG TABLET PO SCH (21:46)
[2022-07-17] MEDS: oxyCODONE-APAP 5-325MG 1 EACH TAB PO PRN (01:02)
[2022-07-17] MEDS: HYDROcodone/APAP 5-325MG 1 EACH TAB PO PRN ×2 (06:27→11:54)
[2022-07-17] MEDS: SENNOSIDES-DOCUSATE SODIUM 1 EACH TAB PO SCH ×2 (07:23→20:47)
[2022-07-17] MEDS: MULTIVITAMINS, THERA 1 EACH TAB PO SCH (07:23)
[2022-07-17] MEDS: HEPARIN SODIUM,PORCINE/PF 5,000 UNIT/0.5 ML SYRINGE SQ SCH (07:23)
[2022-07-17] MEDS: DONEPEZIL 10 MG TAB PO SCH (07:23)
[2022-07-17] MEDS: CHOLECALCIFEROL 25 MCG (1000 IU) TABLET PO SCH (07:23)
[2022-07-17] MEDS: MEMANTINE 10 MG TAB PO SCH ×2 (07:23→20:47)
[2022-07-17 08:52] LABS: Glucose,Whole Blood 154 mg/dL (70-110)
[2022-07-17] MEDS ORDERED: DILTIAZEM DRIP BOLUS FROM BAG 1 MG SOLN IV ONE (10:00)
[2022-07-17] MEDS ORDERED: DEXTROSE 5% IN WATER 100 ML with AMIODARONE 150 MG IV ONE (10:20)
[2022-07-17] MEDS ORDERED: DILTIAZEM 125 MG in SODIUM CHLORIDE 0.9% 100 ML IV SCH (10:30)
[2022-07-17] MEDS ORDERED: AMIODARONE 360 MG in DEXTROSE 5% IN WATER 200 ML IV ONE ×2 (10:30)
[2022-07-17] MEDS: NOREPINEPHRINE 4 MG in SODIUM CHLORIDE 0.9% 250 ML IV SCH (11:33)
[2022-07-17] MEDS: AMIODARONE 200 MG TAB PO SCH ×2 (11:55→20:47)
[2022-07-17] MEDS ORDERED: AMIODARONE 450 MG in DEXTROSE 5% IN WATER 250 ML IV SCH ×2 (16:30)
[2022-07-17] MEDS: MELATONIN 5 MG TABLET PO SCH (20:47)
[2022-07-17] MEDS: ATORVASTATIN 10 MG TAB PO SCH (20:47)
[2022-07-17] MEDS: amLODIPine 5 MG TAB PO SCH (20:48)
[2022-07-17] MEDS: APIXABAN 2.5 MG TABLET PO SCH (20:55)
--- NOTE | 2022-07-17 21:55 | PN ---
PROGRESS NOTE Followup on the medical consult for the underlying medical management. An 86-year-old while female, . LOCATION: Now in the ICU. HISTORY: The patient initially admitted after [place] with the holding release of the dog who run and she tripped on her left side, resulted in a fracture of the left superior ramus and iliac on the left side, seen by the orthopedic surgeon and decided no orthopedic treatment with the monitoring and seen at that time by Dr. Parrish Joshi, [facility]. Subsequently, x-ray of the chest on the left lower ribs indicate also fracture of 6, 7, and 8 on the left side. The patient has underlying dementia and could not be handled as an outpatient and admitted to the hospital and monitored. She was doing very well with no medical problem. This morning, at 8 a.m., I received a call from [address] [place] [address], her nurse stated that the patient converted to atrial fibrillation with RVR 160 beats per minute and at that time they will transfer her to the laboratory monitor floor with the consultation with the Cardiology with the new onset of atrial fibrillation. Her x-ray on admission and that was 07/13/2022, she also showed to have compression deformity in the level of L1 and the left 6th through the 8th rib fracture. Heart was enlarged. She had bilateral infiltrate in the right-sided asymmetric pleural thickening correlate with the pleural plaque or calcified granuloma. The patient was seen and evaluated [id number] and discussed with the daughter at bedside in the ICU today. At this time, on the exam, the patient was reverted back from the atrial fib to normal sinus rhythm with the resulted and paroxysmal atrial fib. However, it is new. We do not have note at that time from Cardiology and glaze grinder has not seen the patient yet. The antiarrhythmic medication has been held because the patient converted back to sinus rhythm and we were waiting for further input and also echocardiogram, it was ordered to indicate the etiology of these atrial fib and if there is any need for added novel anticoagulation or the use of aspirin only. The patient has no history of heart attack in the past. Her blood pressure fairly well controlled and reverted to sinus rhythm in the 80 rhythm. In spite of her dementia, she is pleasant, conscious, alert, and confused intermittently. PHYSICAL EXAMINATION: HEENT: Her head was normocephalic, atraumatic. Pupils equal, reactive. Oropharynx was negative. Natural teeth. NECK: Supple. No JVD. No thyromegaly. No lymphadenopathy and trachea midline. CHEST: Clear to auscultation and percussion. She had mild kyphosis, scoliosis of the spine. EXTREMITIES: No edema and positive pulses. ABDOMEN: Soft, positive bowel sounds and suspicious of stool retention/constipation. ASSESSMENT AND PLAN: 1. The patient admitted with left hip ramus fracture and underlying iliac fracture on the left side and left ribs 6, 7 and 8. 2. Dementia. 3. This fracture was noted as displaced. However, the patient did not have shortness of breath and no friction rub or pleurisy and no pain except the rib pain with deep breathe and she had the respiratory for training with taking deep breath. Today, she had the acute atrial fib with RVR 160 as noted by telemetry in the 4th floor [facility] and currently moved to ICU as overflow from the laboratory monitor bed. No beds in the telemetry floor. With the plan for consultation with Cardiology and subsequently for further evaluation with the echocardiogram and we still have no input from cardiology, probably due to the computer is down, not working. 4. The patient also has been arranged and we consulted manufacturing planner and the social welfare administrator to be admitted to [facility] for further rehabilitation as well as we consulted rehab in the hospital as well and once we have the clearance from Cardiology and if there is nothing else to be done, and there is available bed in [facility], we will transfer the patient. Vital sign was on the computer; however, the computer is down. MMODL / IJN: [id number] /
--- NOTE | 2022-07-17 22:16 | CONS ---
CONSULTATION CHIEF COMPLAINT: Atrial fibrillation. HISTORY OF PRESENT ILLNESS: Jessi is an 86-year-old lady with history of dementia and dyslipidemia, who presented to hospital having had a fall at home with broken pelvic bones. She was supposed to be discharged home and developed atrial fibrillation, for which Cardiology had been consulted. She was in atrial fibrillation with rapid ventricular rate and was transferred to ICU. She was somewhat hypotensive on it. She converted spontaneously back to sinus rhythm. At the time of my evaluation, she was intermittently going in and out of sinus rhythm and subsequently stayed in sinus. The plan at this stage is to start her on Eliquis 2.5 b.i.d. and start her on amiodarone 400 b.i.d. for rhythm suppression. PAST MEDICAL HISTORY: Significant for dyslipidemia and dementia. MEDICATIONS: Include: 1. Namenda 10 b.i.d. 2. Melatonin. 3. Aricept. 4. Lipitor. 5. Eliquis. ALLERGIES: There are no known drug allergies. FAMILY HISTORY: Negative for premature coronary artery disease. SOCIAL HISTORY: Negative for current smoking, EtOH abuse, or drug abuse. REVIEW OF SYSTEMS: HEENT: Unremarkable. CARDIAC: As described above. RESPIRATORY: Negative. GI: Negative. GENITOURINARY: Negative. ALLERGY/IMMUNOLOGY: Negative. SKIN: Negative. MUSCULOSKELETAL: Significant for arthritis. PSYCHOSOCIAL: Negative. DERM: Negative. CONSTITUTIONAL: Negative. REVIEW ANALYST: Negative. ONCOLOGICAL : Negative. Rest of the system review is not relevant. PHYSICAL EXAMINATION: VITAL SIGNS: Heart rate is 70 beats per minute, blood pressure is 111/86, respiratory rate 18, O2 saturation is 95%. NECK: There is no jugular venous distention. Carotid upstroke is normal. There is no bruit. CHEST: Reveals good air entry bilaterally. HEART: Reveals first and second heart sounds. Ejection systolic murmur in the aortic area. ABDOMEN: Soft and nontender. EXTREMITIES: Did not reveal any edema. Peripheral pulses are felt. LABORATORY DATA: Labs show a hemoglobin of 12.7. Potassium is 4, creatinine is 0.7. ASSESSMENT: 1. Paroxysmal atrial fibrillation. 2. Status post fall with hip fracture. PLAN: I will start the patient on IV heparin when okay with Orthopedics, and the patient is covered for Eliquis, we will start her on Eliquis 2.5 b.i.d. MMODL / IJN: [id number] /
[2022-07-18] MEDS: HYDROcodone/APAP 5-325MG 1 EACH TAB PO PRN ×4 (03:24→18:52)
[2022-07-18] MEDS: NOREPINEPHRINE 4 MG in SODIUM CHLORIDE 0.9% 250 ML IV SCH (07:54)
--- NOTE | 2022-07-18 07:55 | CONS ---
CONSULTATION CHIEF COMPLAINT: Atrial fibrillation. Jessi is an 86-year-old lady with history of dementia and dyslipidemia, who lives in an assisted living care facility and fell down and broke her pubic bones, and was admitted to hospital. She was actually getting ready to be discharged, then went into atrial fibrillation with rapid ventricular rate, for which she is admitted to ICU and Cardiology has been consulted. At the time of my evaluation, she appears comfortable at rest. Earlier, she was hypotensive, but her blood pressure had improved and she is making efforts to convert to sinus rhythm. She denies chest pain or difficulty in breathing. She does not have chest pain or difficulty in breathing. There is no prior history of atrial fibrillation. DICTATION ENDS HERE. MMODL / IJN: [id number] /
[2022-07-18] MEDS: AMIODARONE 200 MG TAB PO SCH ×2 (08:32→21:33)
[2022-07-18] MEDS: MEMANTINE 10 MG TAB PO SCH ×2 (08:32→21:33)
[2022-07-18] MEDS: SENNOSIDES-DOCUSATE SODIUM 1 EACH TAB PO SCH ×2 (08:32→21:34)
[2022-07-18] MEDS: CHOLECALCIFEROL 25 MCG (1000 IU) TABLET PO SCH (08:32)
[2022-07-18] MEDS: DONEPEZIL 10 MG TAB PO SCH (08:32)
[2022-07-18] MEDS: MULTIVITAMINS, THERA 1 EACH TAB PO SCH (08:32)
[2022-07-18] MEDS: APIXABAN 2.5 MG TABLET PO SCH ×2 (09:58→21:36)
[2022-07-18 10:24] LABS: Basophils % (A) 0 %; Eosinophils % (A) 0 %; HCT 38.3 % (34.0-46.0); HGB 12.2 gm/dL (11.4-16.0); Lymphocytes # (A) 0.8 k/uL (1.0-4.8); Lymphocytes % (A) 5 %; MCH 30.7 pg (25.0-35.0); MCHC 31.9 g/dL (31.0-37.0); MCV 96.2 fL (80.0-100.0); Mean Platelet Volume 8.2; Monocytes # (A) 0.7 k/uL (0-1.0); Monocytes % (A) 4 %; Neutrophils # (A) 13.5 k/uL (1.3-7.7); Neutrophils % (A) 88 %; Platelet Count 191 k/uL (150-450); RBC 3.99 m/uL (3.80-5.40); WBC 15.4 k/uL (3.8-10.6)
[2022-07-18 10:36] LABS: Calcium 8.8 mg/dL (8.4-10.2); Potassium 4.1 mmol/L (3.5-5.1)
--- NOTE | 2022-07-18 10:37 | CA ---
Transthoracic Echo Report Name: Jessi Cook Age: 86 Gender: F : 1935 Exam Date: 07/18/2022 09:05 Exam Location: [place] Ht (in): 61 Wt (lb): 125 Ordering Physician: Terri Paredes Attending/Referring Phys: Ampoule Washing Machine Operator Concetta Rueda RDCS Procedure CPT: Indications: new onset a fib Cardiac Hx: Technical Quality: Good Contrast 1: Total Dose (mL): Contrast 2: Total Dose (mL): MEASUREMENTS (Male / Female) Normal Values 2D ECHO LV Diastolic Diameter PLAX 3.5 cm 4.2 - 5.9 / 3.9 - 5.3 cm LV Systolic Diameter PLAX 2.5 cm IVS Diastolic Thickness 0.9 cm 0.6 - 1.0 / 0.6 - 0.9 cm LVPW Diastolic Thickness 0.8 cm 0.6 - 1.0 / 0.6 - 0.9 cm LV Relative Wall Thickness 0.5 RV Internal Dim ED PLAX 2.9 cm LA Systolic Diameter LX 2.9 cm 3.0 - 4.0 / 2.7 - 3.8 cm LA Volume 34.7 cm??? 18 - 58 / 22 - 52 cm??? M-MODE Aortic Root Diameter MM 3.3 cm MV E Point Septal Separation 1.1 cm AV Cusp Separation MM 2.2 cm DOPPLER AV Peak Velocity 112.2 cm/s AV Peak Gradient 5.0 mmHg MV Area PHT 3.4 cm??? Mitral E Point Velocity 49.2 cm/s Mitral A Point Velocity 70.2 cm/s Mitral E to A Ratio 0.7 MV Deceleration Time 226.2 ms MV E' Velocity 8.9 cm/s Mitral E to MV E' Ratio 5.5 TR Peak Velocity 231.9 cm/s TR Peak Gradient 21.5 mmHg Right Ventricular Systolic Press 26.5 mmHg FINDINGS Left Ventricle Left ventricular ejection fraction is estimated at 55-60 %. Left ventricular cavity size normal. Left ventricular wall thickness normal. Right Ventricle Normal right ventricular size and function. Right ventricular systolic pressure within normal limits. Right Atrium Normal right atrial size. Left Atrium Normal left atrial size. No evidence for an atrial septal defect. Mitral Valve Structurally normal mitral valve. Trace to mild mitral regurgitation. Aortic Valve Trileaflet aortic valve. No aortic valve stenosis or regurgitation. Tricuspid Valve Mild tricuspid regurgitation. Pulmonic Valve Pulmonic valve not well visualized. Pericardium Normal pericardium. No pericardial effusion. Aorta Normal size aortic root and proximal ascending aorta. CONCLUSIONS Normal LV size with preserved systolic function and ejection fraction of about 55%. Minimal mitral and tricuspid insufficiency. No pericardial effusion. No significant pulmonary hypertension Previewed by: Dr. Kerry Todd MD (Electronically Signed) Final Date: 18 July 2022 10:37
--- NOTE | 2022-07-18 10:53 | XR ---
EXAM: XR Chest, 1 View CLINICAL HISTORY: Patient presents with shortness of breath. TECHNIQUE: Frontal view of the chest. COMPARISON: No relevant prior studies available. FINDINGS: Lungs: Diminished lung volumes. Bibasilar subsegmental changes noted. Pleural space: Small bilateral pleural effusions noted. No pneumothorax. Heart: Unremarkable. No cardiomegaly. Mediastinum: No appreciable abnormality, accounting for obliquity. Bones/joints: Unremarkable. IMPRESSION: Diminished lung volumes. Bibasilar subsegmental changes are nonspecific and may represent compressive atelectasis adjacent to the bilateral small pleural effusions or bibasilar infection. Please correlate clinically.
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
[2022-07-18] MEDS: ATORVASTATIN 10 MG TAB PO SCH (21:34)
[2022-07-18] MEDS: MELATONIN 5 MG TABLET PO SCH (21:34)
--- NOTE | 2022-07-18 22:14 | PN ---
PROGRESS NOTE SUBJECTIVE: Jessi is an 86-year-old lady with history of dementia, who came to hospital following a fall and pelvic fracture that we are involved in the care of because of atrial fibrillation. She is having intermittent episodes of paroxysmal atrial fibrillation. This morning, she remains in sinus rhythm, on amiodarone 400 b.i.d. and Eliquis 2.5 b.i.d. We will give her amiodarone for 3 days at 400 b.i.d. and then bring her down to 200 b.i.d. OBJECTIVE: VITAL SIGNS: Heart rate is around 80 beats per minute. Blood pressure is 110/80, respiratory rate is 18. CHEST: Reveals good air entry bilaterally. HEART: Reveals first and second heart sounds. No gallop. EXTREMITIES: Did not reveal any edema. Peripheral pulses are felt. DIAGNOSTIC STUDIES: An echocardiogram shows normal LV systolic function. ASSESSMENT: 1. Paroxysmal atrial fibrillation. 2. Dementia, status post fall. PLAN: Continue amiodarone and Eliquis. MMODL / IJN: [id number] /
[2022-07-19] MEDS: AMIODARONE 200 MG TAB PO SCH (06:37)
[2022-07-19] MEDS: HYDROcodone/APAP 5-325MG 1 EACH TAB PO PRN ×2 (07:01→14:17)
[2022-07-19 09:11] VITALS: BP 115/55; PULSE 90; RESP 18; TEMP 98.3
[2022-07-19] MEDS: CHOLECALCIFEROL 25 MCG (1000 IU) TABLET PO SCH (09:11)
[2022-07-19] MEDS: SENNOSIDES-DOCUSATE SODIUM 1 EACH TAB PO SCH (09:11)
[2022-07-19] MEDS: MEMANTINE 10 MG TAB PO SCH (09:11)
[2022-07-19] MEDS: MULTIVITAMINS, THERA 1 EACH TAB PO SCH (09:11)
[2022-07-19] MEDS: DONEPEZIL 10 MG TAB PO SCH (09:12)
[2022-07-19] MEDS: APIXABAN 2.5 MG TABLET PO SCH (09:12)
[2022-07-19] MEDS: NOREPINEPHRINE 4 MG in SODIUM CHLORIDE 0.9% 250 ML IV SCH (09:34)
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
--- NOTE | 2022-07-19 11:36 | P.PN ---
Subjective Progress Note Date: 07/19/22 HISTORY OF PRESENT ILLNESS: This is an 86-year-old female who is admitted to the hospital secondary to a pelvic fracture. During her hospitalization, she developed atrial fibrillation with RVR. Patient converted spontaneously to sinus mechanism. At the time of my examination this morning, the patient remains in sinus mechanism. Vital signs are stable. Echocardiogram completed revealing ejection fraction 55-60%, trace to mild mitral regurgitation, and mild tricuspid regurgitation. Plan is for discharge to [facility] today. PHYSICAL EXAM: VITAL SIGNS: Reviewed. GENERAL: Well-developed in no acute distress. NECK: Supple. No JVD or thyromegaly LUNGS: Respirations even and unlabored. Lungs essentially clear to auscultation bilaterally. HEART: Regular rate and rhythm. S1 and S2 heard. Systolic murmur noted. EXTREMITIES: Normal range of motion. No clubbing or cyanosis. Peripheral pulses intact. No lower extremity edema ASSESSMENT: Status post fall Pelvic fracture New-onset paroxysmal atrial fibrillation PLAN: Continue current cardiac medications Patient is stable from a cardiac standpoint for discharge to [facility] Nurse practitioner note has been reviewed by physician. Signing provider agrees with the documented findings, assessment, and plan of care. Objective - Vital Signs Vital signs: Vital Signs Temp 98.3 F 07/19/22 09:08 Pulse 90 07/19/22 09:08 Resp 18 07/19/22 09:08 BP 115/55 07/19/22 09:08 Pulse Ox 93 L 07/19/22 09:08 FiO2 Intake & Output 07/18/22 07/19/22 07/19/22 18:59 06:59 18:59 Output Total 425 300 Balance -425 -300 Output: Urine 425 300 Other: Voiding Method Bedside Commode Bedside Commode - Labs CBC & Chem 7: 07/18/22 09:33 07/18/22 09:33
--- NOTE | 2022-07-19 12:58 | P.DS ---
Providers Date of admission: 07/12/22 23:58 Expected date of discharge: 07/19/22 Attending physician: Mauri Samuels Consults: 07/12/22 23:58 Consult Physician Urgent Consulting Provider: Madelyn Sandhu Consult Reason/Comments: Left pubic rami and iliac bone fractures Do you want consulting provider notified?: Already Contacted 07/17/22 07:50 Consult Physician Urgent Consulting Provider: Jasbir Roberson Consult Reason/Comments: a-fib rvr, new onset Do you want consulting provider notified?: Yes Primary care physician: Mauri Samuels Discharge note Date of service 07/19/[address] Samuels Disposition transfer to [facility] as no beds. Discharge summary dictated Patient stable for discharge today Seen in [id number] today on 07/19/2022. Vital sign temperature 98.3 F oral, heart 90, respiratory rate 18/m, blood pressure 115/55, oxygen saturation 93 on the room air Med rec reconciled. Continuing the current medication Patient currently with a history of paroxysmal atrial fibrillation 1 episode occurred in hospitalization and need to follow with the cardiology [facility] as outpatient. Patient placed on amiodarone by cardiology and they will follow- up on that. Otherwise patient stable general condition with the underlying chronic dementia and hyperlipidemia. Physical exam was normal with head normocephalic and atraumatic, natural teeth, Neck was supple no JVD no thyromegaly no lymphadenopathy trachea midline Chest is clear and heart was regular sinus rhythm Abdomen is soft positive bowel sounds and extremities no edema Patient on the rehabilitation and to continue rehab and [facility] and to be followed by the orthopedic [facility]. With her instruction. Stable general condition for discharge and transfer to [facility] for follow-up on the rehab. Consultation with the cardiology to continue to follow up the patient with her medication of amiodarone as they stated she will be 400 mg twice a day for 2 weeks and then cut down on the medication and that is why Dr. Rogers the welfare visitor. Plan - Discharge Summary Discharge Rx Participant: No New Discharge Prescriptions: New Apixaban [Eliquis] 2.5 mg PO BID tab Magnesium Hydroxide [Milk of Magnesia Concentrate] 2,400 mg PO DAILY PRN ml PRN Reason: Constipation HYDROcodone/APAP 5-325MG [[place] 5-325] 1 each PO Q4HR PRN #0 tab PRN Reason: Moderate Pain (Scale 4 To 6) Sennosides-Docusate Sodium [Senokot-S] 1 each PO BID tab Acetaminophen Tab [Tylenol] 650 mg PO Q6HR PRN tab PRN Reason: Mild Pain Or Fever > 100.5 Apixaban [Eliquis] 2.5 mg PO BID #60 tab Amiodarone [Cordarone] 200 mg PO DAILY #90 tab Continue Multivitamins, Thera [Multivitamin (formulary)] 1 tab PO DAILY Melatonin [Melatonin ER] 10 mg PO HS Cholecalciferol [Vitamin D3 (25 Mcg = 1000 Iu)] 25 mcg PO DAILY Memantine [Namenda] 10 mg PO BID Donepezil HCl [Aricept] 10 mg PO DAILY Atorvastatin [Lipitor] 10 mg PO HS Discharge Medication List Atorvastatin [Lipitor] 10 mg PO HS 07/13/22 [History] Cholecalciferol [Vitamin D3 (25 Mcg = 1000 Iu)] 25 mcg PO DAILY 07/13/22 [History] Donepezil HCl [Aricept] 10 mg PO DAILY 07/13/22 [History] Melatonin [Melatonin ER] 10 mg PO HS 07/13/22 [History] Memantine [Namenda] 10 mg PO BID 07/13/22 [History] Multivitamins, Thera [Multivitamin (formulary)] 1 tab PO DAILY 07/13/22 [History] Apixaban [Eliquis] 2.5 mg PO BID #60 tab 07/17/22 [Rx] Acetaminophen Tab [Tylenol] 650 mg PO Q6HR PRN tab 07/18/22 [Rx] Apixaban [Eliquis] 2.5 mg PO BID tab 07/18/22 [Rx] HYDROcodone/APAP 5-325MG [[place] 5-325] 1 each PO Q4HR PRN #0 tab 07/18/22 [Rx] Magnesium Hydroxide [Milk of Magnesia Concentrate] 2,400 mg PO DAILY PRN ml 07/18/22 [Rx] Sennosides-Docusate Sodium [Senokot-S] 1 each PO BID tab 07/18/22 [Rx] Amiodarone [Cordarone] 200 mg PO DAILY #90 tab 07/19/22 [Rx] Follow up Appointment(s)/Referral(s): Madelyn Sandhu DO [Doctor of Osteopathic Medicine] - 2 Weeks Mauri Samuels MD [Primary Care Provider] - 1-2 days Activity/Diet/Wound Care/Special Instructions: Weightbearing 50% on the left leg Discharge Disposition: TRANSFER TO SNF/ECF
== END 2022-07-19 16:32 | DRG 536 ==
LOC: EC 17:05 → 4SSUR 23:58 → 2SICU 07-17 08:40 → 3SCARD 07-19 02:50
PROVIDERS: ADMIT Internal Medicine; ATTEND Internal Medicine
DX: S32.302A Unspecified fracture of left ilium, initial encounter for closed fracture (principal); S32.512A Fracture of superior rim of left pubis, initial encounter for closed fracture; S32.592A Other specified fracture of left pubis, initial encounter for closed fracture; M48.56XA Collapsed vertebra, not elsewhere classified, lumbar region, initial encounter for fracture; S22.32XA Fracture of one rib, left side, initial encounter for closed fracture; G30.9 Alzheimer's disease, unspecified; F02.80 Dementia in other diseases classified elsewhere, unspecified severity, without behavioral disturbance, psychotic disturbance, mood disturbance, and anxiety; I08.1 Rheumatic disorders of both mitral and tricuspid valves; I10 Essential (primary) hypertension; I95.9 Hypotension, unspecified; W10.9XXA Fall (on) (from) unspecified stairs and steps, initial encounter; E78.5 Hyperlipidemia, unspecified; I48.0 Paroxysmal atrial fibrillation; R26.2 Difficulty in walking, not elsewhere classified; R01.1 Cardiac murmur, unspecified; R74.8 Abnormal levels of other serum enzymes; Y92.009 Unspecified place in unspecified non-institutional (private) residence as the place of occurrence of the external cause; Z79.899 Other long term (current) drug therapy; Z79.01 Long term (current) use of anticoagulants; Z90.89 Acquired absence of other organs; Y92.099 Unspecified place in other non-institutional residence as the place of occurrence of the external cause
CPT/HCPCS: 71046; 72192; 73502; 80048; 80053; 83880; 84484; 85025; 85610; 85730; 93005; 93306; 94760; 99285